=== PATIENT | male | born 1980 | race Caucasian/White ===

== ENCOUNTER 2019-01-09 20:53 | Inpatient (IN) | payer OTHER ==
[2019-01-09 21:08] VITALS: TEMP 97.8; BMI 29.6
[2019-01-09] MEDS ORDERED: chlordiazePOXIDE HCL 25 MG CAPSULE PO ONE (21:13)
[2019-01-09] MEDS ORDERED: chlordiazePOXIDE HCL 25 MG CAPSULE ONE (21:16)
--- NOTE | 2019-01-09 21:17 | PDOC ---
History of Present Illness - General Chief Complaint: Seizure Stated Complaint: SEIZURE Time Seen by Provider: 01/09/19 20:58 - History of Present Illness Initial Comments: Garett Dong is a 38yo man with a PMH of alcohol abuse who presents from detox after a seizure. Mr Dong states that he does not remember the event; he reports that the last thing he remembers is a "couple of days ago" but that he does remember going to detox today. He states that he had a seizure a few months ago due to not drinking, and he usually becomes sweaty and shaky when he does not drink. Per notes from detox, Mr Dong was admitted today for alcohol detox. A "thump was heard" and staff entered his room tonight to find him seizing. The seizure was described as tonic-clonic, lasting 2 minutes 5 seconds. He was noted to have contusions to his head and back. Currently Mr Dong reports only head pain. He says that he is "feeling better" and asks to be sent home rather than back to detox. Past History - Past Medical History Allergies/Adverse Reactions: Allergies Allergy/AdvReac Type Severity Reaction Status Date / Time No Known Allergies Allergy Verified 01/09/19 21:08 Home Medications: Ambulatory Orders NK [No Known Home Medication] 01/09/19 Asthma: No Cardiac Disorders: No COPD: No Diabetes: No GI Disorders: No Disorders: No HTN: No Kidney Stones: No Seizures: No - Surgical History Abdominal Surgery: No Appendectomy: No Cardiac Surgery: No Cholecystectomy: No Lung Surgery: No Neurologic Surgery: No Orthopedic Surgery: No - Reproductive History Testicular Surgery: No - Suicide/Smoking/Psychosocial Hx Smoking History: Never smoked Have you smoked in the past 12 months: No Hx Alcohol Use: Yes (DAILY) Hx Substance Use Treatment: No Review of Systems - Review of Systems Comments:: General: No fevers, no chills, no weight or appetite change, no malaise HEENT: No changes in vision, no changes in hearing, no congestion, no sore throat CV: No chest pain, no palpitations, no LE edema Pulm: No SOB, no cough, no wheezing GI: No nausea or vomiting, no change in bowel habits, no melena : No frequency, no urgency, no dysuria Musc: No back pain, no joint swelling, no recent injury Skin: No rash, no lesions, no erythema Endo: No excessive thirst, no heat/cold intolerance Heme: No unusual bruising or bleeding, no swollen glands Neuro: See HPI - several recent seizures Vasc: No claudication Psych: No recent change in mood, no SI or HI *Physical Exam - Vital Signs Last Vital Signs Temp Pulse Resp BP Pulse Ox 97.8 F 86 18 143/83 98 01/09/19 21:00 01/09/19 21:00 01/09/19 21:00 01/09/19 21:00 01/09/19 21:00 - Physical Exam Comments: General: In no acute distress, tremulous, mildly diaphoretic (forehead) HEENT: Large raised contusion on left occipital head. No neck TTP. No abrasion or bleeding. PERRL, EOMI, MMM, voice normal. +tongue fasciculations Cards: RRR, no murmur appreciated Pulm: Comfortable on room air, clear to auscultation bilaterally Abd: Soft, nontender, nondistended Back: Red-purple bruise over right back/flank with induration. Nontender to palpation. No spinal TTP or deformity Ext: Atraumatic. No LE edema. ROM intact. Strength 5/5 and equal bilaterally Vasc: Extremities WWP Skin: Normal color, no rashes or lesions Neuro: A&Ox3, CN grossly intact, normal speech, motor/sensory grossly intact and symmetric Psych: Mood appropriate to situation ED Treatment Course - LABORATORY CBC & Chemistry Diagram: 01/09/19 21:10 01/09/19 21:10 - RADIOLOGY Radiology Studies Ordered: Category Date Time Status HEAD CT WITHOUT CONTRAST [CT] Stat CT Scan 01/09/19 20:59 Ordered Medical Decision Making - Medical Decision Making 01/09/19 21:13 Garett Dong is a 38yo man with a PMH of alcohol abuse who presents from detox after an unwitnessed fall and witnessed tonic-clonic seizure. He is noted to have a large contusion over the left occipital head and ecchymosis to the right flank. - Tonic-clonic seizure likely secondary to alcohol withdrawal. Pt has tremors, sweating, tongue fasciculation consistent with withdrawal - No labs from detox. Large area of ecchymosis concerning for possible bleed or more significant injury, pt may have coagulation abnormalities due to alcohol use - CBC, CMP, PT, PTT - CT head w/o contrast - CT abd/pelvis with IV contrast - Libruim for withdrawal, will continue to monitor 01/09/19 22:03 - 2mg IV ativan ordered for continued sweating, tremulousness - Signed out to Dr Esquivel for the remainder of his ED care. Discussed with Dr Esquivel and Inocencio. Kaylyn Bates PGY2 *DC/Admit/Observation/Transfer Diagnosis at time of Disposition: Alcohol abuse, Unwitnessed fall - Referrals - Patient Instructions - Post Discharge Activity
[2019-01-09 21:45] LABS: BASO % 0.4 % (0-2.0); HEMATOCRIT 42.5 % (35.4-49); HEMOGLOBIN 14.4 GM/dL (11.7-16.9); LYMPH % 4.3 % (8-40); MCH 31.7 pg (25.7-33.7); MCHC 33.9 g/dl (32.0-35.9); MEAN CELL VOLUME 93.3 fl (80-96); MEAN PLT VOLUME 6.9 fl (7.5-11.1); MONO % 4.2 % (3.8-10.2); NEUT % 91.1 % (42.8-82.8); PLATELET COUNT 168 K/MM3 (134-434); RBC 4.55 M/mm3 (4.00-5.60); RDW 14.1 % (11.9-15.9); WHITE BLOOD COUNT 10.5 K/mm3 (4.0-10.0)
[2019-01-09] MEDS ORDERED: LORazepam 2 MG/ML SDV VIAL ONE (22:03)
[2019-01-09 22:08] LABS: ALBUMIN 4.5 g/dl (3.4-5.0); BILIRUBIN,TOTAL 1.2 mg/dL (0.2-1); BLOOD UREA NITROGEN 8.8 mg/dL (7-18); CALCIUM 9.4 mg/dL (8.5-10.1); CREATININE 1.2 mg/dL (0.55-1.3); POTASSIUM 3.6 mmol/L (3.5-5.1); TOT PROT 7.4 g/dl (6.4-8.2)
[2019-01-09 22:21] LABS: INR 0.95 (0.83-1.09); PROTHROMBIN TIME (PATIENT) 11.2 SEC (9.7-13.0)
[2019-01-09 22:23] LABS: ACTIVATED PTT 25.9 SECONDS (25.2-36.5)
--- NOTE | 2019-01-09 23:03 | PDOC ---
Attending Attestation - Resident Resident Name: JanaKaylyn - ED Attending Attestation I have performed the following: I have examined & evaluated the patient, The case was reviewed & discussed with the resident, I agree w/resident's findings & plan - HPI HPI: 01/09/19 23:02 see resident hpi - Physicial Exam PE: 01/09/19 23:02 agree with resident exam - Medical Decision Making 01/09/19 23:02 38-year-old status post seizure while undergoing alcohol detox Exam revealed a flank hematoma Plan for CT scan of the head chest abdomen and pelvis Patient will be admitted to medical service pending results for alcohol withdrawal seizure A[place] and Librium
[2019-01-09 23:19] LABS: PLATELET ESTIMATE NORMAL
--- NOTE | 2019-01-10 01:04 | PDOC ---
*Physical Exam - Vital Signs Last Vital Signs Temp Pulse Resp BP Pulse Ox 97.8 F 66 16 143/83 98 01/09/19 21:00 01/09/19 22:34 01/09/19 22:34 01/09/19 21:00 01/09/19 22:34 ED Treatment Course - LABORATORY CBC & Chemistry Diagram: 01/09/19 21:10 01/09/19 21:10 - ADDITIONAL ORDERS Additional order review: Laboratory Results 01/09/19 01/09/19 01/09/19 22:10 21:10 21:10 PT with INR 11.20 INR 0.95 PTT (Actin FS) 25.9 Sodium 137 Potassium 3.6 Chloride 98 Carbon Dioxide 21 Anion Gap 18 H BUN 8.8 Creatinine 1.2 Est GFR (CKD-EPI)AfAm 87.14 Est GFR (CKD-EPI)NonAf 75.19 Random Glucose 138 H Calcium 9.4 Total Bilirubin 1.2 H AST 66 H ALT 62 H Alkaline Phosphatase 49 Total Protein 7.4 Albumin 4.5 Alcohol, Quantitative < 3.0 01/09/19 21:10 RBC 4.55 MCV 93.3 MCHC 33.9 RDW 14.1 MPV 6.9 L Neutrophils % 91.1 H Lymphocytes % 4.3 L Monocytes % 4.2 Eosinophils % 0.0 Basophils % 0.4 - Medications Given in the ED: ED Medications Discontinued Medications Generic Name Dose Route Start Last Admin Trade Name Freq PRN Reason Stop Dose Admin Chlordiazepoxide HCl 50 mg 01/09/19 21:13 01/09/19 21:20 Librium - PO 01/09/19 21:14 50 mg ONCE ONE Administration Lorazepam 2 mg 01/09/19 22:00 01/09/19 22:13 Ativan Injection - IVPUSH 01/09/19 22:01 2 mg ONCE ONE Administration Medical Decision Making - Medical Decision Making Patient signed out by Dr. Bates @ [id number] 38 y/o male with a PMHx of ETOH abuse presents from Detox s/p unwitnessed fall and witnessed tonic clonic seizure. Reports possible h/o DT's CTAP pending for L flank hematoma; CT head pending S/p Librium, Ativan Head CT, CTAP negative Will admit for likely alcohol withdrawal seizure 01/10/19 01:03 Case d/w Dr. Whitman, will admit OBS Tele *DC/Admit/Observation/Transfer Diagnosis at time of Disposition: Alcohol abuse, Unwitnessed fall - Referrals - Patient Instructions - Post Discharge Activity
--- NOTE | 2019-01-10 01:49 | HP ---
CHIEF COMPLAINT: seizure HISTORY OF PRESENT ILLNESS: Garett Dong is a 38 year old male with a past medical history of hypertension, alcohol abuse (many years, recently increased use over the last several months) , seizures secondary to alcohol withdrawal. Patient stated that he had been drinking for many years but had increased his use as of recent over the last several months stating there are a lot of stressors in his life including losing his job and financial strain. He stated that he drink approximately half a gallon of vodka per day. Friend at the bedside stated that the patient had 2 seizures prior to this current episode, both this year, the most recent being 1 day prior to detox admission. The patient does not remember either episode. On this current admission, the patient presented to detox at [facility] and was admitted when he developed a seizure that lasted 2 minutes and 5 seconds. The onset of the seizure was not witnessed but and the patient was found down on the floor with tonic-clonic convulsions. The patient does not remember this episode. No reported tongue bite, no urinary incontinence. Patient does not report any prodromal symptoms of visual or auditory sensorium, focal tingling or shaking. He was brought to [facility] ED. In the ED, the patient was given Librium and Ativan. He stated that he feels better and complains of pain at the site of a hematoma on his left posterior scalp and R flank and back as well as generalized weakness and tiredness. CT head and CT abdomen/pelvis were performed with results as below. Currently, denies chest pain, shortness of breath, abdominal pain, nausea, vomiting, headaches, dizziness, lightheadedness , visual changes, constipation, diarrhea, fever, chills, numbness, tingling, focal weakness. ER course was notable for: (1) CT head notable for left posterior scalp hematoma, no intracranial pathology (2) CT abd/pevlis notable for hepatic steatosis, no acute intracranial organ injury (3) elevated bili, AST 66, ALT 62 Recent Travel: denies PAST MEDICAL HISTORY: as above PAST SURGICAL HISTORY: denies surgical history Social History: Smoking: denies Alcohol: drinks half a gallon of vodka per day, increased over the last several months, has been drinking since age 13 Drugs: denies significant drug use Family History: Mother- HTN Allergies No Known Allergies Allergy (Verified 01/09/19 21:08) HOME MEDICATIONS: Home Medications Medication Instructions Recorded NK [No Known Home Medication] 01/09/19 REVIEW OF SYSTEMS CONSTITUTIONAL: generalized weakness Absent: fever, chills, diaphoresis, malaise, loss of appetite, HEENT: Absent: rhinorrhea, nasal congestion, throat pain, throat swelling, visual changes CARDIOVASCULAR: Absent: chest pain, syncope, palpitations, irregular heart rate, lightheadedness RESPIRATORY: Absent: cough, shortness of breath, dyspnea with exertion, orthopnea, wheezing, GASTROINTESTINAL: Absent: abdominal pain, abdominal distension, nausea, vomiting, diarrhea, constipation GENITOURINARY: Absent: dysuria, frequency, urgency, hesitancy, hematuria, MUSCULOSKELETAL: back pain, flank pain, scalp pain Absent: myalgia, arthralgia, joint swelling, neck pain SKIN: Absent: rash, itching, pallor HEMATOLOGIC/IMMUNOLOGIC: bruising on R flank and back Absent: easy bleeding, easy bruising, lymphadenopathy, frequent infections ENDOCRINE: Absent: unexplained weight gain, unexplained weight loss, heat intolerance, cold intolerance NEUROLOGIC: seizure Absent: headache, focal weakness or paresthesias, dizziness, unsteady gait, mental status changes, bladder or bowel incontinence PSYCHIATRIC: Absent: anxiety, depression, suicidal or homicidal ideation, hallucinations. PHYSICAL EXAMINATION Vital Signs - 24 hr 01/09/19 01/09/19 01/10/19 21:00 22:34 01:48 Temperature 97.8 F Pulse Rate 86 Pulse Rate [ 66 80 Right Radial] Respiratory 18 16 16 Rate Blood Pressure 143/83 Blood Pressure 122/71 [Right Arm] O2 Sat by Pulse 98 98 98 Oximetry (%) GENERAL: Awake, alert, and fully oriented, in no acute distress. HEAD: L posterior scalp hematoma noted EYES: Pupils equal, round and reactive to light, extraocular movements intact, sclera anicteric, conjunctiva clear. EARS, NOSE, THROAT: Oropharynx clear without exudates. Moist mucous membranes. LUNGS: Breath sounds equal, clear to auscultation bilaterally. No wheezes, and no crackles. No accessory muscle use. HEART: Regular rate and rhythm, normal S1 and S2 without murmur, rub. ABDOMEN: Soft, nontender, not distended, normoactive bowel sounds, no guarding, no rebound, no masses. MUSCULOSKELETAL: Normal range of motion at all joints. No bony deformities or tenderness. UPPER EXTREMITIES: 2+ pulses, warm, well-perfused. No cyanosis. No clubbing. No peripheral edema. LOWER EXTREMITIES: 2+ pulses, warm, well-perfused. No calf tenderness. No peripheral edema. NEUROLOGICAL: Cranial nerves II-XII intact. 5/5 muscle strength upper and lower extremities bilaterally. Sensation intact on face, upper, and lower extremities to gross touch. Finger to nose and heel to betancourt intact. Romberg not assessed. PSYCHIATRIC: Cooperative. Good eye contact. Appropriate mood and affect. SKIN: Warm, dry, normal turgor, Large bruising noted on R flank and back. Painful to palpation. Laboratory Results - last 24 hr 01/09/19 01/09/19 01/09/19 21:10 21:10 21:10 WBC 10.5 H RBC 4.55 Hgb 14.4 Hct 42.5 MCV 93.3 MCH 31.7 MCHC 33.9 RDW 14.1 Plt Count 168 MPV 6.9 L Absolute Neuts (auto) 9.6 H Neutrophils % 91.1 H Neutrophils % (Manual) 89.0 H Band Neutrophils % 2.0 Lymphocytes % 4.3 L Lymphocytes % (Manual) 5.0 L Monocytes % 4.2 Monocytes % (Manual) 4 Eosinophils % 0.0 Eosinophils % (Manual) 0.0 Basophils % 0.4 Basophils % (Manual) 0.0 Myelocytes % (Man) 0 Promyelocytes % (Man) 0 Blast Cells % (Manual) 0 Nucleated RBC % 0 Metamyelocytes 0 Platelet Estimate Normal Platelet Comment No clumping noted PT with INR 11.20 INR 0.95 PTT (Actin FS) 25.9 Sodium 137 Potassium 3.6 Chloride 98 Carbon Dioxide 21 Anion Gap 18 H BUN 8.8 Creatinine 1.2 Est GFR (CKD-EPI)AfAm 87.14 Est GFR (CKD-EPI)NonAf 75.19 Random Glucose 138 H Calcium 9.4 Total Bilirubin 1.2 H AST 66 H ALT 62 H Alkaline Phosphatase 49 Total Protein 7.4 Albumin 4.5 Alcohol, Quantitative 01/09/19 22:10 WBC RBC Hgb Hct MCV MCH MCHC RDW Plt Count MPV Absolute Neuts (auto) Neutrophils % Neutrophils % (Manual) Band Neutrophils % Lymphocytes % Lymphocytes % (Manual) Monocytes % Monocytes % (Manual) Eosinophils % Eosinophils % (Manual) Basophils % Basophils % (Manual) Myelocytes % (Man) Promyelocytes % (Man) Blast Cells % (Manual) Nucleated RBC % Metamyelocytes Platelet Estimate Platelet Comment PT with INR INR PTT (Actin FS) Sodium Potassium Chloride Carbon Dioxide Anion Gap BUN Creatinine Est GFR (CKD-EPI)AfAm Est GFR (CKD-EPI)NonAf Random Glucose Calcium Total Bilirubin AST ALT Alkaline Phosphatase Total Protein Albumin Alcohol, Quantitative < 3.0 ASSESSMENT/PLAN: Garett Dong is a 38 year old male with a past medical history of hypertension, alcohol abuse (many years, recently increased use over the last several months) , seizures secondary to alcohol withdrawal admitted for a seizure likely secondary to alcohol withdrawal. Seizure Alcohol Abuse R flank and back hematoma HTN Elevated LFTs Seizure - with a history of alcohol withdrawal seizures and recent cessation of alcohol likely contributing to current episode - head CT with no acute intracranial pathology - continue Librium protocol with Ativan prn - Keppra 1000mg loading dose and continue Keppra 500mg bid - neurology consultation, patient has had 2 seizures in the last 48-72 hours, likely source is withdrawal however may consider alternative sources of seizures - neurochecks - NPO to prevent aspiration - HOB elevation - seizure precautions, fall precautions - UA and Utox - magnesium levels - continuous cardiac monitoring Alcohol Abuse - Librium detox protocol - Ativan prn - can return to detox when medically stable - encourage cessation - MVI/thiamine/folic acid supplementation R flank and back hematoma - CT with no acute pathology - continue to monitor clinically for changes to abdominal exam HTN - not currently on medications - manage conservatively, low threshold to start antihypertensives Elevated LFTs - likely elevated in setting of alcohol abuse - continue to trend for resolution FEN - LR at 100cc/hr - continue to monitor electrolyte and replete as necessary - NPO to prevent aspiration in event of breakthrough seizure Prophylaxis - SCDs as patient has hematomas and risk of bleeding Code - full code MARIA ESTHER RUEDA DO - PGY-1 Visit type - Emergency Visit Emergency Visit: Yes ED Registration Date: 01/10/19 Care time: The patient presented to the Emergency Department on the above date and was hospitalized for further evaluation of their emergent condition. - New Patient This patient is new to me today: Yes Date on this admission: 01/10/19 - Critical Care Critical Care patient: No
[2019-01-10] MEDS ORDERED: LACTATED RINGERS SOLUTION 1,000 ML/1,000 ML INFUS.BAG IV SCH (02:15)
[2019-01-10] MEDS ORDERED: chlordiazePOXIDE HCL 10 MG CAPSULE PO PRN (02:17)
[2019-01-10] MEDS ORDERED: FOLIC ACID INJECTION - 1 MG, THIAMINE HCL 100 MG, MULTIVIT INJECTION ADULT 10 ML in SOD... IVPB ONE (02:20)
[2019-01-10] MEDS ORDERED: levETIRAcetam 500 MG/5 ML INJECTION VIAL IVPB ONE (02:21)
--- NOTE | 2019-01-10 02:52 | PN ---
Teaching Attending Note Name of Resident: Parveen Green ATTENDING PHYSICIAN STATEMENT I saw and evaluated the patient. I reviewed the resident's note and discussed the case with the resident. I agree with the resident's findings and plan as documented. SUBJECTIVE: 38yo man with etoh abuse d/o x3 years, drinks 1/2 gallon vodka/day admitted himself to detox on 01/09. Reported seizure episode earlier this year, one shortly prior to detox yesterday and on during detox. First sz episode prior to detox lasted about 1 min, witnessed by partner, tonic clonic, in detox was similar episode. He never saw neurology or taken AED. OBJECTIVE: Last Vital Signs Temp Pulse Resp BP Pulse Ox 97.8 F 80 16 122/71 98 01/09/19 21:00 01/10/19 01:48 01/10/19 01:48 01/10/19 01:48 01/10/19 01:48 general -drowsy, aaox3 heent- posterior scalp hematoma neck -supple cv-s1+s2+rrr chest clear abdomen- right flank hematoma ext- no edema Abnormal Lab Results 01/09/19 01/09/19 21:10 21:10 WBC 10.5 H MPV 6.9 L Absolute Neuts (auto) 9.6 H Neutrophils % 91.1 H Neutrophils % (Manual) 89.0 H Lymphocytes % 4.3 L Lymphocytes % (Manual) 5.0 L Anion Gap 18 H Random Glucose 138 H Total Bilirubin 1.2 H AST 66 H ALT 62 H imaging studies reviewed ASSESSMENT AND PLAN: #Alcohol abuse/impending withdrawal complicated by seizure d/o likely related to withdrawal from etoh. Right flank and scalp hematomas likely from fall after seizure, head CT neg for ICH, abd CT only + for liver steatosis. -admit to telemetry -npo -neurology consult -bed rest, fall precautions -loading dose of Keppra 1g IVPB then 500mg IVPB bid -neuro checks q4hrs -lorazepam 2mg IV q4hrs prn if seizure -detox protocol with librium - 50mg po qhrs, then taper as per protocol -banana bag -IV fluid hydration -check mg replete if low -urine toxicology -ekg -heparin sc for dvt ppx
[2019-01-10] MEDS ORDERED: chlordiazePOXIDE HCL 25 MG CAPSULE ONE ×2 (05:20→14:22)
[2019-01-10] MEDS: chlordiazePOXIDE HCL 25 MG CAPSULE PO SCH ×2 (05:22→14:39)
[2019-01-10 05:26] VITALS: PULSE 64
[2019-01-10] MEDS ORDERED: HEPARIN NA (PORCINE) 5,000 UNITS/ML 1ML VIAL SQ SCH (06:00)
[2019-01-10] MEDS ORDERED: HEPARIN NA (PORCINE) 5,000 UNITS/ML 1ML VIAL ONE (06:05)
[2019-01-10 06:09] LABS: COCAINE, UR NEGATIVE ng/ml (CUTOFF=300); METHADONE, UR NEGATIVE ng/ml (CUTOFF=300); OPIATES, URI NEGATIVE ng/ml (CUTOFF=300); PHENCYCLIDINE,URINE NEGATIVE ng/ml (CUTOFF=25); URINE AMPHETAMINES NEGATIVE ng/ml (CUTOFF=500); URINE BARBITURATES NEGATIVE ng/ml (CUTOFF=200)
[2019-01-10 06:11] LABS: URINE BENZODIAZEPINES POSITIVE ng/ml (CUTOFF=200)
[2019-01-10 07:15] LABS: BASO % 0.4 % (0-2.0); EOS % 0.3 % (0-4.5); HEMATOCRIT 39.9 % (35.4-49); HEMOGLOBIN 14.2 GM/dL (11.7-16.9); LYMPH % 10.7 % (8-40); MCH 32.8 pg (25.7-33.7); MCHC 35.5 g/dl (32.0-35.9); MEAN CELL VOLUME 92.4 fl (80-96); MEAN PLT VOLUME 7.1 fl (7.5-11.1); MONO % 8.1 % (3.8-10.2); NEUT % 80.5 % (42.8-82.8); PLATELET COUNT 113 K/MM3 (134-434); RBC 4.32 M/mm3 (4.00-5.60); RDW 13.8 % (11.9-15.9); WHITE BLOOD COUNT 5.8 K/mm3 (4.0-10.0)
[2019-01-10 07:27] LABS: MAGNESIUM 2.4 mg/dL (1.8-2.4); PHOSPHOROUS 2.4 mg/dL (2.5-4.9)
[2019-01-10 07:32] LABS: EPI CELLS 2.2 /HPF (0-5/HPF); HYALINE CASTS 3 /lpf (0-8); PH,URINE 6.5 (5.0-8.0); URINE APPEARANCE Clear; URINE BACTERIA 4.6 /hpf (NEGATIVE); URINE BILIRUBIN Negative (NEGATIVE); URINE COLOR Yellow; URINE GLUCOSE (UA) 100 (NEGATIVE); URINE KETONE Trace (NEGATIVE); URINE LEUK ESTERASE Negative (NEGATIVE); URINE NITRITE Negative (NEGATIVE); URINE PROTEIN 30 (NEGATIVE); URINE RBC 6 /hpf (0-4); URINE WBC 0 /hpf (0-5)
[2019-01-10] MEDS: INSULIN SLIDING SCALE (NOVOLOG) 1 VIAL SQ SCH ×3 (08:48→15:45)
[2019-01-10] MEDS ORDERED: FOLIC ACID 1 MG TABLET (FP) PO SCH (10:00)
[2019-01-10] MEDS ORDERED: THIAMINE HCL 200 MG/2 ML VIAL IVPB SCH (10:00)
[2019-01-10] MEDS ORDERED: levETIRAcetam 500 MG/5 ML INJECTION VIAL IVPB SCH (10:00)
--- NOTE | 2019-01-10 12:24 | EKG ---
Test Reason : Blood Pressure : / mmHG Vent. Rate : 063 BPM Atrial Rate : 063 BPM P-R Int : 138 ms QRS Dur : 094 ms QT Int : 422 ms P-R-T Axes : 065 043 024 degrees QTc Int : 431 ms NORMAL SINUS RHYTHM NORMAL ECG NO PREVIOUS ECGS AVAILABLE Confirmed by MADISON MCCANN MD ([id number]) on 01/10/2019 12:23:48 PM Referred By: Confirmed By:MADISON MCCANN MD
[2019-01-10 12:47] VITALS: BP 128/79
--- NOTE | 2019-01-10 14:16 | CON.NEURO ---
Consult - Alcohol/Substance Use Hx Alcohol Use: Yes (DAILY) - Smoking History Smoking history: Never smoked Have you smoked in the past 12 months: No Home Medications - Allergies Allergies/Adverse Reactions: Allergies Allergy/AdvReac Type Severity Reaction Status Date / Time No Known Allergies Allergy Verified 01/09/19 21:08 - Home Medications Home Medications: Ambulatory Orders NK [No Known Home Medication] 01/09/19 Family Disease History - Family Disease History Family Disease History: Heart Disease: Mother (HTN) Physical Exam-Neuro Vital Signs: Vital Signs Temperature 97.8 F 01/09/19 21:00 Pulse Rate 64 01/10/19 12:46 Respiratory Rate 15 01/10/19 12:46 Blood Pressure 128/79 01/10/19 12:46 O2 Sat by Pulse Oximetry (%) 98 01/10/19 12:46 Labs: CBC, BMP 01/10/19 06:38 01/09/19 21:10 INR, PTT INR 0.95 (0.83-1.09) 01/09/19 21:10 Assessment/Plan cc Breakthrough seizure HPI 38 year old male, history of HTN,Alcohol abuse. Clarke was in detox. He came to hospital for episode of seizure, and as per patient he has one episode of episod.e He could not tell if he was tring to stop alcohol use. clarke has generlaized tonic clonic seizure and lasted two minute. There is tongue bite. There is no urinary incontinence. Patient denies any aura, and he was confused afterwards. He was started on keppra. clarke was not drinking one week prior to this episode of seizure. Patient has ct head , which is unremarkable. He denies any history of epilepsy, or family history of epilepsy. There is no hisotry of head trauma,stroke . CT head showed there is small superficial hematoma PAST MEDICAL HISTORY: as above PAST SURGICAL HISTORY: denies surgical history Social History: Smoking: denies Alcohol: drinks half a gallon of vodka per day, increased over the last several months, has been drinking since age 13 Drugs: denies significant drug use Family History: Mother- HTN Allergies No Known Allergies Allergy (Verified 01/09/19 21:08) HOME MEDICATIONS: Home Medications Medication Instructions Recorded NK [No Known Home Medication] 01/09/19 ROS,FH,SH reviewed in chart NEUROLOGICAL EXAMINATION Alert oriented x 3, neck is supple, he is standing at bed side and have iv line hooked up with iv fluid. neck is supple Eomi, pupils reactive, no face asymmetry, vf normal, face sensation is normal 5/5 all ext able to walk, no abnormal movement or spasticity sensation is normal reflex are normal ct head normal Assessment/Plan Most likley alcohol withdrawal seizure, patient has normal ct head and normal exam Plan: Given that patient has seizure seven days after alcohol withdrawal and two more seizure in past. No detail info available. I suggest to continue keppra 500 mg po bid, and after 2-3 weeks, and frederic pruitt, keppra can be tapered off - suggest to do mri with contrast and eeg , can be done outpatient - seizure precautions Thnaking you so much Salvatore Gonzalez MD
[2019-01-10] MEDS ORDERED: NAPH,MB-DB/K PH,MBDB POWDER PACKET PO ONE (16:21)
--- NOTE | 2019-01-10 16:24 | PN ---
Teaching Attending Note Name of Resident: Geeta Jones ATTENDING PHYSICIAN STATEMENT I saw and evaluated the patient. I reviewed the resident's note and discussed the case with the resident. I agree with the resident's findings and plan as documented. SUBJECTIVE:asymptomatic. denies Cp, SOB< fever, chills, N/V/C/D, PEARSON, auditory/ visual hallucinations states he had similiar episode earlier this year but "not as dramatic" after stopping drinking. did not seek medical attention last drink was 2 days ago OBJECTIVE: Last Vital Signs Temp Pulse Resp BP Pulse Ox 97.8 F 64 15 128/79 98 01/09/19 21:00 01/10/19 12:46 01/10/19 12:46 01/10/19 12:46 01/10/19 12:46 General NAD CV S1 S2 RRR no murmur/rub/gallop lungs CTA B/L no wheezing/rales/rhonchi ASSESSMENT AND PLAN: 38yo M with PMH HTN, continuous ETOH dependence sent from [facility] for witnessed seizure 1. Seizure- likely due to ETOH withdrawal. no signs of infection. head CT negative for pathology. keppra loaded and on 500mg BID. as per neuro should cont for 2 week period in which he should have MRI and EEG done as outpatient. then can f/u with neuro for alyce if appropriate. seizure precautions 2. ETOH withdrawal- CIWA 0. give banana bag. librium protocol. counselled on need for abstinence. plan to do outpatient rehab at [place] once detox is completed. thiamine/folate/MVI 3. transaminitis- liekly due to drinking. no abdominal pain. avoid hepatotox agents. trend 4. hypophosphatemia- neutraphos 5. DVT ppx- Hep sq 6. spoke with present at bedside. all questions answered. verbalized understanding and agreement. medically optimized for transfer back to [facility]. no beds available. will remain hospitalized until bed becomes available
--- NOTE | 2019-01-10 21:27 | PN ---
Physical Exam: SUBJECTIVE: Patient seen and examined. He reports abdominal and back soreness. He denies aura prior to seizure, tremors, auditory and visual hallucinations, n/ v. OBJECTIVE: Vital Signs Period Temp Pulse Resp BP Sys/Smith Pulse Ox Last 24 Hr 64-80 14-18 122-131/71-86 98-100 GENERAL: The patient is awake, alert, and fully oriented, in no acute distress. HEAD: Normal with no signs of trauma. EYES: PERRL, extraocular movements intact, sclera anicteric, conjunctiva clear. No ptosis. ENT: Ears normal, nares patent, moist mucous membranes. NECK: Trachea midline, full range of motion, supple. LUNGS: Breath sounds equal, clear to auscultation bilaterally, no wheezes, no crackles, no accessory muscle use. HEART: Regular rate and rhythm, S1, S2 without murmur, rub or gallop. ABDOMEN: Soft, nontender, nondistended, normoactive bowel sounds EXTREMITIES: 2+ pulses, warm, well-perfused, no edema. NEUROLOGICAL: Cranial nerves II through XII grossly intact. Normal speech, gait not observed. PSYCH: Normal mood, normal affect. SKIN: Warm, dry, normal turgor, no rashes or lesions noted Laboratory Results - last 24 hr 01/09/19 01/09/19 01/09/19 21:10 21:10 21:10 WBC 10.5 H RBC 4.55 Hgb 14.4 Hct 42.5 MCV 93.3 MCH 31.7 MCHC 33.9 RDW 14.1 Plt Count 168 MPV 6.9 L Absolute Neuts (auto) 9.6 H Neutrophils % 91.1 H Neutrophils % (Manual) 89.0 H Band Neutrophils % 2.0 Lymphocytes % 4.3 L Lymphocytes % (Manual) 5.0 L Monocytes % 4.2 Monocytes % (Manual) 4 Eosinophils % 0.0 Eosinophils % (Manual) 0.0 Basophils % 0.4 Basophils % (Manual) 0.0 Myelocytes % (Man) 0 Promyelocytes % (Man) 0 Blast Cells % (Manual) 0 Nucleated RBC % 0 Metamyelocytes 0 Platelet Estimate Normal Platelet Comment No clumping noted PT with INR 11.20 INR 0.95 PTT (Actin FS) 25.9 Sodium 137 Potassium 3.6 Chloride 98 Carbon Dioxide 21 Anion Gap 18 H BUN 8.8 Creatinine 1.2 Est GFR (CKD-EPI)AfAm 87.14 Est GFR (CKD-EPI)NonAf 75.19 POC Glucometer Random Glucose 138 H Calcium 9.4 Phosphorus Magnesium Total Bilirubin 1.2 H AST 66 H ALT 62 H Alkaline Phosphatase 49 Total Protein 7.4 Albumin 4.5 Urine Color Urine Appearance Urine pH Ur Specific [place] Urine Protein Urine Glucose (UA) Urine Ketones Urine Blood Urine Nitrite Urine Bilirubin Urine Urobilinogen Ur Leukocyte Esterase Urine WBC (Auto) Urine RBC (Auto) Urine Casts (Auto) U Epithel Cells (Auto) Urine Bacteria (Auto) Opiates Screen Methadone Screen Barbiturate Screen Phencyclidine Screen Ur Amphetamines Screen MDMA (Ecstasy) Screen Benzodiazepines Screen Cocaine Screen U Marijuana (THC) Screen Alcohol, Quantitative 01/09/19 01/10/19 01/10/19 22:10 04:35 04:35 WBC RBC Hgb Hct MCV MCH MCHC RDW Plt Count MPV Absolute Neuts (auto) Neutrophils % Neutrophils % (Manual) Band Neutrophils % Lymphocytes % Lymphocytes % (Manual) Monocytes % Monocytes % (Manual) Eosinophils % Eosinophils % (Manual) Basophils % Basophils % (Manual) Myelocytes % (Man) Promyelocytes % (Man) Blast Cells % (Manual) Nucleated RBC % Metamyelocytes Platelet Estimate Platelet Comment PT with INR INR PTT (Actin FS) Sodium Potassium Chloride Carbon Dioxide Anion Gap BUN Creatinine Est GFR (CKD-EPI)AfAm Est GFR (CKD-EPI)NonAf POC Glucometer Random Glucose Calcium Phosphorus Magnesium Total Bilirubin AST ALT Alkaline Phosphatase Total Protein Albumin Urine Color Yellow Urine Appearance Clear Urine pH 6.5 Ur Specific [place] 1.048 H Urine Protein 30 Urine Glucose (UA) 100 Urine Ketones Trace Urine Blood Moderate Urine Nitrite Negative Urine Bilirubin Negative Urine Urobilinogen 1.0 Ur Leukocyte Esterase Negative Urine WBC (Auto) 0 Urine RBC (Auto) 6 Urine Casts (Auto) 3 U Epithel Cells (Auto) 2.2 Urine Bacteria (Auto) 4.6 Opiates Screen Negative Methadone Screen Negative Barbiturate Screen Negative Phencyclidine Screen Negative Ur Amphetamines Screen Negative MDMA (Ecstasy) Screen Negative Benzodiazepines Screen Positive A* Cocaine Screen Negative U Marijuana (THC) Screen Negative Alcohol, Quantitative < 3.0 01/10/19 01/10/19 01/10/19 06:38 06:38 08:47 WBC 5.8 RBC 4.32 Hgb 14.2 Hct 39.9 MCV 92.4 MCH 32.8 MCHC 35.5 RDW 13.8 Plt Count 113 L D MPV 7.1 L Absolute Neuts (auto) 4.7 Neutrophils % 80.5 Neutrophils % (Manual) Band Neutrophils % Lymphocytes % 10.7 D Lymphocytes % (Manual) Monocytes % 8.1 D Monocytes % (Manual) Eosinophils % 0.3 D Eosinophils % (Manual) Basophils % 0.4 Basophils % (Manual) Myelocytes % (Man) Promyelocytes % (Man) Blast Cells % (Manual) Nucleated RBC % 0 Metamyelocytes Platelet Estimate Platelet Comment PT with INR INR PTT (Actin FS) Sodium Potassium Chloride Carbon Dioxide Anion Gap BUN Creatinine Est GFR (CKD-EPI)AfAm Est GFR (CKD-EPI)NonAf POC Glucometer 88 Random Glucose Calcium Phosphorus 2.4 L Magnesium 2.4 Total Bilirubin AST ALT Alkaline Phosphatase Total Protein Albumin Urine Color Urine Appearance Urine pH Ur Specific [place] Urine Protein Urine Glucose (UA) Urine Ketones Urine Blood Urine Nitrite Urine Bilirubin Urine Urobilinogen Ur Leukocyte Esterase Urine WBC (Auto) Urine RBC (Auto) Urine Casts (Auto) U Epithel Cells (Auto) Urine Bacteria (Auto) Opiates Screen Methadone Screen Barbiturate Screen Phencyclidine Screen Ur Amphetamines Screen MDMA (Ecstasy) Screen Benzodiazepines Screen Cocaine Screen U Marijuana (THC) Screen Alcohol, Quantitative Assessment/Plan: Mr. Dong is a 38y/o male with hypertension, alcohol use disorder (1 gallon of vodka daily), seizures secondary to alcohol withdrawal admitted for a seizure likely secondary to alcohol withdrawal. #seizure 2/2 alcohol withdrawal Pt has history of alcohol withdrawal seizures. Last drink was less than [address] negative for acute intracranial pathology. -Librium protocol for seizure/withdrawal prevention -Keppra 1000mg loading dose and continue Keppra 500mg bid -neurology consultation, patient has had 2 seizures in the last 48-72 hours, likely source is withdrawal however may consider alternative sources of seizures -neurochecks -NPO to prevent aspiration -tele #alcohol use disorder -Librium detox protocol -Ativan prn -can return to detox when medically stable -encourage cessation -MVI/thiamine/folic acid supplementation #R flank and back hematoma CT with no acute pathology -continue to monitor clinically for changes to abdominal exam #HTN -not currently on medications -manage conservatively, low threshold to start antihypertensives #transaminitis -likely elevated in setting of alcohol abuse -continue to trend for resolution FEN LR 100mL/hr continue to monitor electrolyte and replete as necessary NPO DVT Prophylaxis SCDs Visit type - Emergency Visit Emergency Visit: Yes ED Registration Date: 01/10/19 Care time: The patient presented to the Emergency Department on the above date and was hospitalized for further evaluation of their emergent condition. - New Patient This patient is new to me today: Yes Date on this admission: 01/10/19 - Critical Care Critical Care patient: No - Discharge Referral Referred to [facility] No ATTENDING PHYSICIAN STATEMENT I saw and evaluated the patient. I reviewed the resident's note and discussed the case with the resident. I agree with the resident's findings and plan as documented. SUBJECTIVE: OBJECTIVE: ASSESSMENT AND PLAN:
[2019-01-10] MEDS ORDERED: levETIRAcetam 500 MG TABLET (FP) PO SCH (22:00)
[2019-01-11] MEDS ORDERED: chlordiazePOXIDE 5 MG CAPSULE PO SCH (05:00)
[2019-01-12] MEDS ORDERED: chlordiazePOXIDE HCL 10 MG CAPSULE PO PRN
[2019-01-12] MEDS ORDERED: chlordiazePOXIDE HCL 10 MG CAPSULE PO SCH (05:00)
[2019-01-13] MEDS ORDERED: chlordiazePOXIDE HCL 10 MG CAPSULE PO ONE (05:00)
== END 2019-01-10 16:51 | disposition short-term general hospital (02) | DRG 53 ==
LOC: JER 20:53 → JERBED 01-10 01:04
PROVIDERS: ADMIT Internal Medicine; ATTEND Internal Medicine
PROC: HZ2ZZZZ Detoxification Services for Substance Abuse Treatment (ICD-10-PCS; principal; 2019-01-09)
DX: R56.9 Unspecified convulsions (principal); F10.239 Alcohol dependence with withdrawal, unspecified; S00.03XA Contusion of scalp, initial encounter; I10 Essential (primary) hypertension; E83.39 Other disorders of phosphorus metabolism; K76.0 Fatty (change of) liver, not elsewhere classified; W18.39XA Other fall on same level, initial encounter; Y92.89 Other specified places as the place of occurrence of the external cause
CPT/HCPCS: 36415; 70450-TC; 74177-TC; 80053; 80307; 81003; 82962; 83735; 84100; 85025; 85610; 85730; 87086; 93005; 93010; 99285-25; J1644; J7030

== ENCOUNTER 2019-01-10 17:15 | Inpatient (IN) | payer OTHER ==
[2019-01-10 18:43] VITALS: BMI 29.5
--- NOTE | 2019-01-10 20:29 | HP ---
CIWA Score Nausea/Vomitin-No Nausea/No Vomiting Muscle Tremors: 3 Anxiety: 1-Mildly Anxious Agitation: 2 Paroxysmal Sweats: 3 Orientation: 0-Oriented Tacttile Disturbances: 2-Mild Itch/Numbness/Burn Auditory Disturbances: 0-None Visual Disturbances: 0-None Headache: 2-Mild CIWA-Ar Total Score: 13 - Admission Criteria OASAS Guidelines: Admission for Medically Managed Detox: Requires at least one of the followin. CIWA greater than 12 2. Seizures within the past 24 hours 3. Delirium tremens within the past 24 hours 4. Hallucinations within the past 24 hours 5. Acute intervention needed for co occurring medical disorder 6. Acute intervention needed for co occurring psychiatric disorder 7. Severe withdrawal that cannot be handled at a lower level of care (continued vomiting, continued diarrhea, abnormal vital signs) requiring intravenous medication and/or fluids 8. Admission ROS S - [facility] Chief Complaint: Alcohol withdrawal symptoms Allergies/Adverse Reactions: Allergies Allergy/AdvReac Type Severity Reaction Status Date / Time No Known Allergies Allergy Verified 01/09/19 21:08 History of Present Illness: 38 years old male with 25 years of alcohol dependence is seeking admission to detox. Patient was admitted on 01/09/2019, had a seizure and was sent to [facility]. He states that he has never been admitted to detox and reports 3 Rehabilitations. He has history of seizure, depression and anxiety. He denies suicide attempt and suicidal ideation at this time. - Ebola screening Have you traveled outside of the country in the last 21 days: No (N) Have you had contact with anyone from an Ebola affected area: No Do you have a fever: No - Review of Systems Constitutional: Loss of Appetite, Malaise, Night Sweats, Changes in sleep EENT: reports: No Symptoms Reported Respiratory: reports: No Symptoms reported Cardiac: reports: No Symptoms Reported : reports: No Symptoms Reported Musculoskeletal: reports: Back Pain, Joint Pain, Muscle Pain Integumentary: reports: Dryness, Flushing Neuro: reports: Headache, Seizure (had seizure yesterday), Tremors Endocrine: reports: No Symptoms Reported Hematology: reports: No Symptoms Reported Psychiatric: reports: Mood/Affect Appropiate, Orientated x3, Anxious, Depressed Other Systems: Reviewed and Negative Patient History - Patient Medical History Hx Anemia: No Hx Asthma: No Hx Chronic Obstructive Pulmonary Disease (COPD): No Hx Cancer: No Hx Cardiac Disorders: No Hx Congestive Heart Failure: No Hx Hypertension: No Hx Hypercholesterolemia: No Hx Pacemaker: No HX Cerebrovascular Accident: No Hx Seizures: Yes (Keppra) Hx Dementia: No Hx Diabetes: No Hx Gastrointestinal Disorders: No Hx Liver Disease: No Hx Genitourinary Disorders: No Hx Sexually Transmitted Disorders: No Hx Renal Disease (ESRD): No Hx Thyroid Disease: No Hx Human Immunodeficiency Virus (HIV): No (Negative 2008) Hx Hepatitis C: No Hx Depression: Yes (Not on medication) Hx Suicide Attempt: No (Denies suicide attempt/ suicidal ideation at 5this time) Hx Bipolar Disorder: No Hx Schizophrenia: No Other Medical History: Anxiety - Not on medication - Patient Surgical History Past Surgical History: No Hx Neurologic Surgery: No Hx Cataract Extraction: No Hx Cardiac Surgery: No Hx Lung Surgery: No Hx Abdominal Surgery: No Hx Appendectomy: No Hx Cholecystectomy: No Hx Genitourinary Surgery: No Hx Orthopedic Surgery: No Anesthesia Reaction: No - PPD History Previous Implant?: Yes Documented Results: Negative w/o proof Implanted On Prior R Admission?: No PPD to be Administered?: Yes - Reproductive History Patient is a Female of Child Bearing Age (11 -55 yrs old): No (Male) - Smoking Cessation Smoking history: Never smoked Have you smoked in the past 12 months: No Hx Chewing Tobacco Use: No Initiated information on smoking cessation: No - Substance & Tx. History Hx Alcohol Use: Yes Hx Substance Use: No Substance Use Type: Alcohol Hx Substance Use Treatment: Yes ([place], [place]) - Substances abused Alcohol Substance route: Oral Frequency: Daily Amount used: half galloon, 6 packs of beer once in a while. Age of first use: 12 Date of last use: 01/08/19 Family Disease History - Family Disease History Family Disease History: Heart Disease: Mother (HTN) Admission Physical Exam BHS - Vital Signs Vital Signs: Vital Signs - 24 hr 01/10/19 18:34 Temperature 97.1 F L Pulse Rate 85 Respiratory 18 Rate Blood Pressure 136/92 - Physical General Appearance: Yes: Moderate Distress, Tremorous, Sweating, Anxious HEENTM: Yes: Within Normal Limits Respiratory: Yes: Lungs Clear, Normal Breath Sounds, No Respiratory Distress Neck: Yes: Supple Breast: Yes: Breast Exam Deferred Cardiology: Yes: Within Normal Limits Abdominal: Yes: Normal Bowel Sounds Genitourinary: Yes: Within Normal Limits Back: Yes: Within Normal Limits Musculoskeletal: Yes: Within Normal Limits Extremities: Yes: Tremors Neurological: Yes: Within Normal Limits, Fully Oriented, Alert, Normal Mood/ Affect Integumentary: Yes: Warm Lymphatic: Yes: Within Normal Limits - Diagnostic (1) Alcohol dependence with uncomplicated withdrawal Current Visit: Yes Status: Acute (2) Seizures Current Visit: Yes Status: Chronic (3) Anxiety Current Visit: Yes Status: Acute (4) Depression Current Visit: Yes Status: Acute Qualifiers: Depression Type: unspecified Qualified Code(s): F32.9 - Major depressive disorder, single episode, unspecified Cleared for Admission S - Detox or Rehab [facility] Level of Care: Medically Managed Detox Regimen/Protocol: Librium Breathalyzer - Breathalyzer Breathalyzer: 0 Urine Drug Screen - Test Device Lot number: [id number] Expiration date: 10/05/20 - Control Is test valid?: Yes - Results Drug screen NEGATIVE: No Urine drug screen results: BZO-Benzodiazepines Inpatient Rehab Admission - Rehab Decision to Admit Inpatient rehab admission?: No
[2019-01-10] MEDS ORDERED: IBUPROFEN 400 MG TABLET (FP) PO PRN (20:50)
[2019-01-10] MEDS ORDERED: chlordiazePOXIDE HCL 25 MG CAPSULE PO PRN (20:50)
[2019-01-10] MEDS ORDERED: MAG HYDROX/AL HYDROX/SIMETH 30 ML UNIT-DOSE CUP PO PRN (20:50)
[2019-01-10] MEDS ORDERED: ACETAMINOPHEN 325 MG TABLET (FP) PO PRN ×2 (20:50)
[2019-01-10] MEDS ORDERED: MELATONIN 5 MG TABLETS PO PRN (20:50)
[2019-01-10] MEDS ORDERED: MAGNESIUM HYDROX 2400MG/30ML ORAL SUSPENSION 30 ML CUP PO PRN (20:50)
[2019-01-10] MEDS ORDERED: METHOCARBAMOL 500 MG TABLET PO PRN (20:50)
[2019-01-10] MEDS ORDERED: MENTHOL/PHENOL 1 EACH UD MM PRN (20:50)
[2019-01-10] MEDS ORDERED: MAGNESIUM CITRATE 300 ML BOTTLE PO PRN (20:50)
[2019-01-10] MEDS ORDERED: BISMUTH SUBSALICYLATE 524 MG/30 ML UD PO PRN (20:50)
[2019-01-10] MEDS ORDERED: hydrOXYzine PAMOATE 25 MG CAPSULE (FP) PO PRN (20:50)
[2019-01-10] MEDS: chlordiazePOXIDE HCL 25 MG CAPSULE PO SCH (22:44)
[2019-01-10] MEDS: levETIRAcetam 500 MG TABLET (FP) PO SCH (22:45)
[2019-01-10] MEDS: THIAMINE HCL 100 MG TABLET (FP) PO SCH (22:45)
[2019-01-11] MEDS: chlordiazePOXIDE HCL 25 MG CAPSULE PO SCH ×4 (06:04→22:26)
--- NOTE | 2019-01-11 08:36 | CONSULT ---
[facility] Psychiatric Consult - Data Date of interview: 01/11/19 Admission source: [facility] Identifying data: Mr Dong is a 38 years old single male, unemployed with no source of income, domiciled seeking detox treatment for alcohol Substance Abuse History: Reports history of alcohol use. Refer to addiction counselor's summary for further information Medical History: Significant for hypertension and history of alcohol withdrawal seizure Psychiatric History: Denies history of previous psychiaric treatment besides seeing a therapist for 3 months last year regarding his addiction. Physical/Sexual Abuse/Trauma History: Denies history of emotional, physical or sexual abuse as well as DV relationship. Additional Comment: Reports multiple previous arrests including 3 felony convictions on charges of DWI Mental Status Exam - Mental Status Exam Alert and Oriented to: Time, Place, Person Cognitive Function: Fair Patient Appearance: Disheveled Mood: Hopeful, Euthymic Affect: Appropriate Patient Behavior: Cooperative Speech Pattern: Clear Voice Loudness: Normal Thought Process: Intact, Goal Oriented Thought Disorder: Not Present Hallucinations: Denies Suicidal Ideation: Denies Homicidal Ideation: Denies Insight/Judgement: Poor Sleep: Fair Appetite: Good Muscle strength/Tone: Normal Gait/Station: Normal Psychiatric Findings - Problem List (Daisy 1, 2,3) (1) Alcohol dependence with uncomplicated withdrawal Current Visit: Yes Status: Acute (2) HTN (hypertension) Current Visit: Yes Status: Chronic (3) Alcohol related seizure Current Visit: Yes Status: Resolved - Initial Treatment Plan Initial Treatment Plan: Continue inpatient detoxification
[2019-01-11] MEDS: PRENATAL VITAMINS W/ FOLIC ACID TABLET (FP) PO SCH (10:23)
[2019-01-11] MEDS: levETIRAcetam 500 MG TABLET (FP) PO SCH ×2 (10:23→22:27)
--- NOTE | 2019-01-11 10:52 | PN ---
S CIWA - CIWA Score Nausea/Vomitin-Mild Nausea/No Vomiting Muscle Tremors: 3 Anxiety: 2 Agitation: 2 Paroxysmal Sweats: 1-Minimal Palms Moist Orientation: 0-Oriented Tacttile Disturbances: 1-Very Mild Itch/Numbness Auditory Disturbances: 0-None Visual Disturbances: 0-None Headache: 2-Mild CIWA-Ar Total Score: 12 BHS Progress Note (SOAP) Subjective: alert,irritable,anxious,interrupted sleep,tremor Objective: 01/11/19 10:50 Vital Signs Temperature 98.1 F 01/11/19 09:22 Pulse Rate 86 01/11/19 09:22 Respiratory Rate 18 01/11/19 09:22 Blood Pressure 154/82 01/11/19 09:22 O2 Sat by Pulse Oximetry (%) 01/11/19 10:51 labs pending Assessment: 01/11/19 10:51 withdrawal symptom Plan: continue detox,librium regimen,seizure precaution
[2019-01-11] MEDS: FOLIC ACID 1 MG TABLET (FP) PO SCH (10:56)
[2019-01-11 12:06] LABS: HEMATOCRIT 42.9 % (35.4-49); HEMOGLOBIN 14.9 GM/dL (11.7-16.9); MCH 32.7 pg (25.7-33.7); MCHC 34.7 g/dl (32.0-35.9); MEAN CELL VOLUME 94.2 fl (80-96); MEAN PLT VOLUME 7.9 fl (7.5-11.1); PLATELET COUNT 125 K/MM3 (134-434); RBC 4.55 M/mm3 (4.00-5.60); RDW 13.9 % (11.9-15.9); WHITE BLOOD COUNT 4.3 K/mm3 (4.0-10.0)
[2019-01-11 12:11] LABS: ALBUMIN 4.2 g/dl (3.4-5.0); BLOOD UREA NITROGEN 7.7 mg/dL (7-18); CALCIUM 9.3 mg/dL (8.5-10.1); POTASSIUM 3.6 mmol/L (3.5-5.1); TOT PROT 7.2 g/dl (6.4-8.2)
[2019-01-11] MEDS: THIAMINE HCL 100 MG TABLET (FP) PO SCH (22:27)
[2019-01-12] MEDS: chlordiazePOXIDE HCL 25 MG CAPSULE PO SCH ×4 (05:46→22:30)
[2019-01-12] MEDS: levETIRAcetam 500 MG TABLET (FP) PO SCH ×2 (10:26→22:30)
[2019-01-12] MEDS: PRENATAL VITAMINS W/ FOLIC ACID TABLET (FP) PO SCH (10:26)
[2019-01-12] MEDS: FOLIC ACID 1 MG TABLET (FP) PO SCH (10:26)
--- NOTE | 2019-01-12 10:48 | PN ---
S CIWA - CIWA Score Nausea/Vomitin-No Nausea/No Vomiting Muscle Tremors: 2 Anxiety: 3 Agitation: 0-Normal Activity Paroxysmal Sweats: 3 Orientation: 0-Oriented Tacttile Disturbances: 0-None Auditory Disturbances: 0-None Visual Disturbances: 0-None Headache: 2-Mild CIWA-Ar Total Score: 10 S Progress Note (SOAP) Subjective: c/o anxiety, headache, sweats, mild shakes. Objective: 01/12/19 10:47 Vital Signs 01/12/19 01/12/19 01/12/19 03:30 06:00 09:07 Temperature 96.3 F L 97.3 F L Pulse Rate 84 77 Respiratory 18 18 18 Rate Blood Pressure 141/85 151/90 Lab Results WBC 4.3 K/mm3 (4.0-10.0) 01/11/19 08:30 RBC 4.55 M/mm3 (4.00-5.60) 01/11/19 08:30 Hgb 14.9 GM/dL (11.7-16.9) 01/11/19 08:30 Hct 42.9 % (35.4-49) 01/11/19 08:30 MCV 94.2 fl (80-96) 01/11/19 08:30 MCHC 34.7 g/dl (32.0-35.9) 01/11/19 08:30 RDW 13.9 % (11.9-15.9) 01/11/19 08:30 Plt Count 125 K/MM3 (134-434) L 01/11/19 08:30 Sodium 140 mmol/L (136-145) 01/11/19 08:30 Potassium 3.6 mmol/L (3.5-5.1) 01/11/19 08:30 Chloride 103 mmol/L (98-107) 01/11/19 08:30 Carbon Dioxide 30 mmol/L (21-32) 01/11/19 08:30 Anion Gap 8 MMOL/L (8-16) 01/11/19 08:30 BUN 7.7 mg/dL (7-18) 01/11/19 08:30 Creatinine 1.0 mg/dL (0.55-1.3) 01/11/19 08:30 Random Glucose 93 mg/dL (74-106) 01/11/19 08:30 Calcium 9.3 mg/dL (8.5-10.1) 01/11/19 08:30 Labs noted. Assessment: 01/12/19 10:47 AOX3, in no acute distress. Full ROM, ambulating in the unit. Withdrawal symptoms. Plan: continue detox.
[2019-01-12] MEDS: THIAMINE HCL 100 MG TABLET (FP) PO SCH (22:30)
[2019-01-13] MEDS ORDERED: chlordiazePOXIDE HCL 10 MG CAPSULE PO PRN
[2019-01-13] MEDS: chlordiazePOXIDE HCL 10 MG CAPSULE PO SCH ×4 (05:44→22:17)
[2019-01-13] MEDS: PRENATAL VITAMINS W/ FOLIC ACID TABLET (FP) PO SCH (10:40)
[2019-01-13] MEDS: FOLIC ACID 1 MG TABLET (FP) PO SCH (10:41)
[2019-01-13] MEDS: levETIRAcetam 500 MG TABLET (FP) PO SCH ×2 (10:41→22:16)
--- NOTE | 2019-01-13 14:25 | PN ---
S CIWA - CIWA Score Nausea/Vomitin-No Nausea/No Vomiting Muscle Tremors: 2 Anxiety: 2 Agitation: 2 Paroxysmal Sweats: 2 Orientation: 0-Oriented Tacttile Disturbances: 0-None Auditory Disturbances: 0-None Visual Disturbances: 0-None Headache: 0-None Present CIWA-Ar Total Score: 8 BHS Progress Note (SOAP) Subjective: Feels ok, medication is working Objective: 01/13/19 14:23 Last Vital Signs Temp Pulse Resp BP Pulse Ox 97.7 F 71 18 131/87 01/13/19 13:03 01/13/19 13:03 01/13/19 13:03 01/13/19 13:03 Laboratory Tests 01/11/19 01/11/19 01/11/19 08:30 08:30 08:30 WBC 4.3 RBC 4.55 Hgb 14.9 Hct 42.9 MCV 94.2 MCH 32.7 MCHC 34.7 RDW 13.9 Plt Count 125 L MPV 7.9 D Sodium 140 Potassium 3.6 Chloride 103 Carbon Dioxide 30 Anion Gap 8 BUN 7.7 Creatinine 1.0 Est GFR (CKD-EPI)AfAm 108.63 Est GFR (CKD-EPI)NonAf 93.73 Random Glucose 93 Calcium 9.3 Total Bilirubin 1.0 AST 264 H ALT 142 H Alkaline Phosphatase 51 Total Protein 7.2 Albumin 4.2 RPR Titer Nonreactive TB (QFT) Incubation TB Test (QFT) Nil TB Test (QFT) Mitogen TB Test (QFT) Antigen TB Test (QFT) TB Positive Criteria 01/11/19 08:30 WBC RBC Hgb Hct MCV MCH MCHC RDW Plt Count MPV Sodium Potassium Chloride Carbon Dioxide Anion Gap BUN Creatinine Est GFR (CKD-EPI)AfAm Est GFR (CKD-EPI)NonAf Random Glucose Calcium Total Bilirubin AST ALT Alkaline Phosphatase Total Protein Albumin RPR Titer TB (QFT) Incubation TB Test (QFT) Nil 0.03 TB Test (QFT) Mitogen 2.12 TB Test (QFT) Antigen 0.03 TB Test (QFT) Negative TB Positive Criteria Labs reviewed: AST 264, ALT 142 Assessment: 01/13/19 14:24 Withdrawal sxs Noted with elevated LFTs Plan: Continue detox Encouraged PO water intake Elevated LFTs: most likely due to chronic alcoholism, send hepatitis C Ab, repeat AST/ALT, encourage abstinence from alcohol and all illicit substances
[2019-01-13] MEDS: THIAMINE HCL 100 MG TABLET (FP) PO SCH (22:17)
[2019-01-14] MEDS: chlordiazePOXIDE HCL 10 MG CAPSULE PO SCH ×2 (05:55→17:32)
--- NOTE | 2019-01-14 09:07 | PN ---
S CIWA - CIWA Score Nausea/Vomitin-No Nausea/No Vomiting Muscle Tremors: None Anxiety: 1-Mildly Anxious Agitation: 0-Normal Activity Paroxysmal Sweats: No Perspiration Orientation: 0-Oriented Tacttile Disturbances: 0-None Auditory Disturbances: 0-None Visual Disturbances: 0-None Headache: 0-None Present CIWA-Ar Total Score: 1 BHS Progress Note (SOAP) Subjective: Patient is very well and almost completely asymptomatic. Objective: 01/14/19 09:06 BP:124/79 P:59 R:18 T:97.0 Laboratory 01/11/19 01/11/19 01/11/19 08:30 08:30 08:30 WBC 4.3 K/mm3 K/mm3 (4.0-10.0) RBC 4.55 M/mm3 M/mm3 (4.00-5.60) Hgb 14.9 GM/dL GM/dL (11.7-16.9) Hct 42.9 % % (35.4-49) MCV 94.2 fl fl (80-96) MCH 32.7 pg pg (25.7-33.7) MCHC 34.7 g/dl g/dl (32.0-35.9) RDW 13.9 % % (11.9-15.9) Plt Count 125 K/MM3 L K/MM3 (134-434) MPV 7.9 fl D fl (7.5-11.1) Sodium 140 mmol/L mmol/L (136-145) Potassium 3.6 mmol/L mmol/L (3.5-5.1) Chloride 103 mmol/L mmol/L (98-107) Carbon Dioxide 30 mmol/L mmol/L (21-32) Anion Gap 8 MMOL/L MMOL/L (8-16) BUN 7.7 mg/dL mg/dL (7-18) Creatinine 1.0 mg/dL mg/dL (0.55-1.3) Est GFR (CKD-EPI)AfAm 108.63 Est GFR (CKD-EPI)NonAf 93.73 Random Glucose 93 mg/dL mg/dL (74-106) Calcium 9.3 mg/dL mg/dL (8.5-10.1) Total Bilirubin 1.0 mg/dL mg/dL (0.2-1) AST 264 U/L H U/L (15-37) ALT 142 U/L H U/L (13-61) Alkaline Phosphatase 51 U/L U/L (45-117) Total Protein 7.2 g/dl g/dl (6.4-8.2) Albumin 4.2 g/dl g/dl (3.4-5.0) RPR Titer Nonreactive (NONREACTIVE) TB (QFT) Incubation TB Test (QFT) Nil TB Test (QFT) Mitogen TB Test (QFT) Antigen TB Test (QFT) TB Positive Criteria 01/11/19 08:30 WBC RBC Hgb Hct MCV MCH MCHC RDW Plt Count MPV Sodium Potassium Chloride Carbon Dioxide Anion Gap BUN Creatinine Est GFR (CKD-EPI)AfAm Est GFR (CKD-EPI)NonAf Random Glucose Calcium Total Bilirubin AST ALT Alkaline Phosphatase Total Protein Albumin RPR Titer TB (QFT) Incubation (.) TB Test (QFT) Nil 0.03 IU/mL IU/mL (.) TB Test (QFT) Mitogen 2.12 IU/mL IU/mL (.) TB Test (QFT) Antigen 0.03 IU/mL IU/mL (.) TB Test (QFT) Negative (Negative) TB Positive Criteria (.) Assessment: 01/14/19 09:07 1. Alcohol Dependence with uncomplicated withdrawals. Plan: 1. Patient has done quite well and is ready to be discharged tomorrow. His plans are to be discharged and go home to family.
[2019-01-14] MEDS: levETIRAcetam 500 MG TABLET (FP) PO SCH ×2 (10:57→22:26)
[2019-01-14] MEDS: PRENATAL VITAMINS W/ FOLIC ACID TABLET (FP) PO SCH (10:57)
[2019-01-14] MEDS: FOLIC ACID 1 MG TABLET (FP) PO SCH (10:57)
[2019-01-14 12:45] LABS: SGOT/AST 365 U/L (15-37); SGPT/ALT 374 U/L (13-61)
[2019-01-14] MEDS: THIAMINE HCL 100 MG TABLET (FP) PO SCH (22:26)
[2019-01-15] MEDS ORDERED: chlordiazePOXIDE HCL 10 MG CAPSULE PO ONE (05:00)
[2019-01-15 06:46] VITALS: BP 138/86; PULSE 60; TEMP 97.3
--- NOTE | 2019-01-15 08:43 | DS ---
[facility] Detox Discharge Summary Admission Date: 01/10/19 Discharge Date: 01/15/19 - History Present History: Alcohol Dependence - Physical Exam Results Vital Signs: Vital Signs Temperature 97.3 F L 01/15/19 06:45 Pulse Rate 60 01/15/19 06:45 Respiratory Rate 18 01/15/19 06:45 Blood Pressure 138/86 01/15/19 06:45 O2 Sat by Pulse Oximetry (%) Pertinent Admission Physical Exam Findings: pt arrived in withdrawals Vital Signs Temperature 97.3 F L 01/15/19 06:45 Pulse Rate 60 01/15/19 06:45 Respiratory Rate 18 01/15/19 06:45 Blood Pressure 138/86 01/15/19 06:45 O2 Sat by Pulse Oximetry (%) Laboratory Tests 01/11/19 01/11/19 01/11/19 08:30 08:30 08:30 WBC 4.3 RBC 4.55 Hgb 14.9 Hct 42.9 MCV 94.2 MCH 32.7 MCHC 34.7 RDW 13.9 Plt Count 125 L MPV 7.9 D Sodium 140 Potassium 3.6 Chloride 103 Carbon Dioxide 30 Anion Gap 8 BUN 7.7 Creatinine 1.0 Est GFR (CKD-EPI)AfAm 108.63 Est GFR (CKD-EPI)NonAf 93.73 Random Glucose 93 Calcium 9.3 Total Bilirubin 1.0 AST 264 H ALT 142 H Alkaline Phosphatase 51 Total Protein 7.2 Albumin 4.2 RPR Titer Nonreactive Hep C Ab Diagnostic TB (QFT) Incubation TB Test (QFT) Nil TB Test (QFT) Mitogen TB Test (QFT) Antigen TB Test (QFT) TB Positive Criteria 01/11/19 01/14/19 01/14/19 08:30 08:40 08:40 WBC RBC Hgb Hct MCV MCH MCHC RDW Plt Count MPV Sodium Potassium Chloride Carbon Dioxide Anion Gap BUN Creatinine Est GFR (CKD-EPI)AfAm Est GFR (CKD-EPI)NonAf Random Glucose Calcium Total Bilirubin AST 365 H ALT 374 H Alkaline Phosphatase Total Protein Albumin RPR Titer Hep C Ab Diagnostic <0.1 TB (QFT) Incubation TB Test (QFT) Nil 0.03 TB Test (QFT) Mitogen 2.12 TB Test (QFT) Antigen 0.03 TB Test (QFT) Negative TB Positive Criteria today pt is aaox3 ambulating no acute distress - Treatment Hospital Course: Detox Protocol Followed, Detoxed Safely, Responded well, Discharged Condition Good, Rehab Referral Accepted Patient has Accepted a Rehab Referral to: pt referred to outpatient rehab. - Medication Discharge Medications: Ambulatory Orders Folic Acid - 1 mg PO DAILY tablet 01/10/19 levETIRAcetam [Keppra -] 500 mg PO BID 14 Days #28 tablet 01/10/19 - Diagnosis (1) Alcohol dependence with uncomplicated withdrawal Current Visit: Yes Status: Chronic (2) Anxiety Current Visit: Yes Status: Acute (3) Depression Current Visit: Yes Status: Acute Qualifiers: Depression Type: unspecified Qualified Code(s): F32.9 - Major depressive disorder, single episode, unspecified (4) HTN (hypertension) Current Visit: Yes Status: Chronic (5) Seizures Current Visit: Yes Status: Chronic (6) Alcohol related seizure Current Visit: Yes Status: Resolved - AMA Did Patient Leave Against Medical Advice: No
[2019-01-15] MEDS: PRENATAL VITAMINS W/ FOLIC ACID TABLET (FP) PO SCH (09:00)
[2019-01-15] MEDS: FOLIC ACID 1 MG TABLET (FP) PO SCH (09:00)
[2019-01-15] MEDS: levETIRAcetam 500 MG TABLET (FP) PO SCH (09:00)
== END 2019-01-15 08:46 | disposition home or self-care (01) | DRG 775 ==
LOC: YASAS 17:15 → Y6N 22:17
PROVIDERS: ADMIT Surgery; ATTEND Surgery
PROC: HZ2ZZZZ Detoxification Services for Substance Abuse Treatment (ICD-10-PCS; principal; 2019-01-10)
DX: F10.230 Alcohol dependence with withdrawal, uncomplicated (principal); F41.8 Other specified anxiety disorders; F32.9 Major depressive disorder, single episode, unspecified; G40.509 Epileptic seizures related to external causes, not intractable, without status epilepticus; I10 Essential (primary) hypertension; R94.5 Abnormal results of liver function studies
CPT/HCPCS: 36415; 80053; 84450; 84460; 85027; 86480; 86593; 86803